=== PATIENT | female | born 1990 | race Caucasian/White ===

== ENCOUNTER 2016-11-16 08:47 | Day surgery (SDC) | payer OTHER ==
[~2016-11-16 08:47] MED LIST: RINGER'S SOLUTION,LACTATED 1,000 ML IV PRN
[2016-11-16] MEDS ORDERED: RINGER'S SOLUTION,LACTATED 1,000 ML IV PRN (10:57)
[2016-11-16 11:53] VITALS: BP 110/70
--- NOTE | 2016-11-16 12:59 | OR ---
Operative Report - Dictated Report Narrative: OPERATIVE REPORT DATE OF OPERATION: 11/16/2016 PREOPERATIVE DIAGNOSIS: Rectal bleeding. Family history of colon cancer and polyps. Family history of Crohn's disease POSTOPERATIVE DIAGNOSIS: Normal colonoscopy OPERATION: Colonoscopy SURGEON: Jay Govea MD ANESTHESIA: ANETTE Ford CRNA INDICATIONS FOR PROCEDURE: The patient is a 26-year-old female referred by Dr. Light. She had a single episode of bright red painless rectal bleeding. Her grandmother had colon cancer in her 60s. Her father had colon polyps. Her brother has Crohn's disease. FINDINGS: Capacious redundant colon otherwise normal exam to the cecum NARRATIVE OF PROCEDURE: The patient was identified in the holding area, and prior to the administration of anesthetic, a multidisciplinary timeout was observed. With the patient in the left lateral position and after the administration of intravenous sedation, the perineum was inspected. There was no evidence of pilonidal disease or skin breakdown. The external appearance of the anus was normal. Sphincter tone was good. The flexible fiberoptic colonoscope was inserted into the rectum which was insufflated with air. The rectal mucosa and submucosal vascular pattern appeared normal, the prep was seen to be complete. The scope was advanced through the sigmoid colon, up the descending colon, and around the splenic flexure where the triangular haustral architecture of the transverse colon was seen. The scope was advanced across the transverse colon, around the hepatic flexure to the cecum, where the confluence of tenia and the ileocecal valve were identified. The mucosa at this level appeared normal. The scope was then slowly withdrawn in a circular fashion so that all aspects of colonic mucosa were inspected. The colon was redundant in course and somewhat capacious and character. The haustral architecture appeared well preserved throughout with no evidence of external compression. The mucosa and submucosal vascular pattern appeared normal, specifically there was no gross evidence to suggest colitis or inflammatory bowel disease and no AV malformations were seen. No diverticulosis was demonstrated. No polyps were encountered. The scope was gradually withdrawn to the level of the rectum. As much insufflated air as possible was removed. The scope was withdrawn from the patient and the procedure terminated. The patient tolerated the anesthetic and procedure well without complication and was transferred back to the ambulatory surgery area awake and in stable condition. The patient remained stable throughout a period of postoperative observation. She denied abdominal discomfort, was able to tolerate by mouth intake, and was up without assistance. I shared the operative findings with the patient and she was given copies of the photographs which appear in the medical record. She was discharged home with instructions not to engage in hazardous activity today , but may resume normal activity tomorrow, and advance diet as tolerated. She is to continue those medications as listed in the history and physical exam. Reviewed and electronically signed
== END 2016-11-16 08:48 | disposition home or self-care (01) ==
LOC: AMB 08:47
PROVIDERS: ATTEND Surgery
PROC: 0DJD8ZZ Inspection of Lower Intestinal Tract, Via Natural or Artificial Opening Endoscopic (ICD-10-PCS; principal; 2016-11-16 09:40)
DX: Z12.11 Encounter for screening for malignant neoplasm of colon (principal); K62.5 Hemorrhage of anus and rectum; E03.9 Hypothyroidism, unspecified; D64.9 Anemia, unspecified; F41.9 Anxiety disorder, unspecified; Z80.0 Family history of malignant neoplasm of digestive organs; Z83.71 Family history of colonic polyps; Z87.891 Personal history of nicotine dependence; Z68.29 Body mass index [BMI] 29.0-29.9, adult

== ENCOUNTER 2017-08-08 00:02 | Inpatient (IN) ==
[2017-08-08] MEDS ORDERED: MISOPROSTOL 100 MCG TABLET VG PRN (00:08)
[2017-08-08] MEDS ORDERED: BUTORPHANOL TARTRATE 2 MG/ML VIAL IV PRN (00:08)
[2017-08-08] MEDS ORDERED: ONDANSETRON HCL/PF 2 MG/ML VIAL IV PRN ×2 (00:08→10:19)
[2017-08-08] MEDS ORDERED: RINGER'S SOLUTION,LACTATED 1,000 ML IV PRN (00:08)
[2017-08-08] MEDS ORDERED: OXYTOCIN/DEXTROSE 5%-WATER 30 UNITS/500 ML BAG IV ONE ×2 (00:08→20:47)
[2017-08-08] MEDS ORDERED: RINGER'S SOLUTION,LACTATED 1,000 ML IV ONE (00:08)
[2017-08-08] MEDS ORDERED: DEXTROSE 5%-LACTATED RINGERS 1,000 ML IV PRN (00:08)
[2017-08-08] MEDS ORDERED: NALOXONE HCL 1 MG/1 ML SYRG IV PRN (10:19)
[2017-08-08] MEDS ORDERED: BUPIVACAINE HCL/0.9 % NACL/PF 250 ML EP PRN (10:19)
[2017-08-08] MEDS ORDERED: BUPIVACAINE HCL/PF 30 ML VIAL EP SCH (10:30)
--- NOTE | 2017-08-08 10:39 | PN ---
Progess Note - Interim Date: 08/08/17 Time: 08:30 Narrative: 08/08/17 10:38 Pt starting to get more uncomfortable. SVE: /-2, cehpalic FHTs: + accels, mod brian., early decels [place]: q3-4 min A/P: Encourage ambulation/shower/position changes GBS neg Epidural prn
--- NOTE | 2017-08-08 11:39 | OR ---
Anesthesia Procedure Note - Anesthesia Procedure Note Date of Service: 08/08/17 Narrative: Vital Signs - Last Taken Temp 36.3 C L 08/08/17 11:10 Pulse 96 08/08/17 11:10 Resp 16 08/08/17 11:10 BP 129/82 08/08/17 11:10 Pulse Ox 98 08/08/17 11:10 08/08/17 11:39 ANESTHESIA PROCEDURE NOTE Date of Procedure: 08/08/2017. Time of procedure: 1120. Performed by: Tommy Granados CRNA Well Tender: None. Preprocedure diagnosis: Active labor. Post procedure diagnosis: Same. Procedure: Insertion of labor epidural. Indications: The patient is a 27 -year-old female in active labor requesting labor epidural for pain management. Findings: See below. Details of the procedure: The patient was placed in a sitting position. DuraPrep as well as Betadine swabs X3 was applied to the patient's back. Patient was then draped in a sterile fashion. Lidocaine 1% was infiltrated to the skin and subcutaneous tissues at the level of the L3-4 interspace. The epidural space was identified using a 18-gauge Tuohy needle with loss-of- resistance technique. Epidural catheter was inserted to a depth of 10 centimeters at skin. Negative test dose was elicited using 3 mL of 1.5% preservative-free lidocaine plus epinephrine 1 200,000. The epidural catheter was then taped and secured in place. A loading dose of 8 mL of 0.25% preservative-free bupivacaine was administered to the epidural catheter after negative aspiration for blood and CSF. EBL: Minimal. Fluids: N/A. Specimen: N/A. Post procedure condition: The patient tolerated the procedure well. No complications were noted. Thank you for this consultation. Tommy Granados CRNA
--- NOTE | 2017-08-08 12:36 | PN ---
Progess Note - Interim Date: 08/08/17 Time: 12:33 Narrative: 08/08/17 12:33 Subjective- comfortable after epidural Objective- SVE- 5/95/-2, AROM-clear FHTs- 130's, mod brian, no decels, +accels [place]- q2 min Assessment and plan- Labor- s/p cytotec x1, AROM GBS status- negative Continue current plan of care.
--- NOTE | 2017-08-08 16:18 | PN ---
Progess Note - Interim Date: 08/08/17 Time: 16:17 Narrative: 08/08/17 16:17 Subjective- complaining of a lot of pressure Objective- SVE- 7//-1 with contraction, 6cm without FHTs- 120's, mod brian, no decels, +accels [place]- q2 min Assessment and plan- Labor- s/p cytotec x1, AROM, on pitocin GBS status- negative Continue current plan of care.
[2017-08-08] MEDS ORDERED: BISACODYL 10 MG SUPP.RECT RC PRN (20:47)
[2017-08-08] MEDS ORDERED: BENZOCAINE/MENTHOL 81 SPRAY CAN TP PRN (20:47)
[2017-08-08] MEDS ORDERED: SENNOSIDES 8.6 MG TABLET PO PRN (20:47)
[2017-08-08] MEDS ORDERED: oxyCODONE HCL/ACETAMINOPHEN 1 TAB TABLET PO PRN (20:47)
[2017-08-08] MEDS ORDERED: HYDROCORTISONE 30 APPL TUBE TP PRN (20:47)
[2017-08-08] MEDS ORDERED: GLYCERIN/WITCH HAZEL LEAF 40 APPL BOX TP PRN (20:47)
--- NOTE | 2017-08-08 20:51 | OR ---
Operative Report - Dictated Report Narrative: Spontaneous Vaginal Delivery Viable female with APGARS of 8 at 1 min and 9 at 5 minutes. She delivered at 2026. Presentation was JEFFERY. A tight nuchal cord was noted and was clamped and cut at the perineum. The left anterior shoulder delivered without difficulty followed by the posterior shoulder and the remainder the baby. Spontaneous cry was noted and the baby was dried and stimulated and placed on the maternal abdomen. Weight: 8 pounds 2.2 ounces Placenta was delivered spontaneously and intact. First-degree midline vaginal laceration repaired with 2-0 Vicryl. Estimated blood loss: 100 ml Mother and baby tolerated delivery well. History for Definition: * The number of deliveries resulting in a live the patient experienced prior to current hospitalization * The previous delivery of live twins or any live multiple gestation is considered one live event. *If primagravida or nulliparous is documented select zero for the number of previous live births. Live Events: 0
[2017-08-08] MEDS: DOCUSATE SODIUM 100 MG CAPSULE PO SCH (23:07)
[2017-08-08] MEDS: IBUPROFEN 800 MG TABLET PO PRN (23:07)
[2017-08-09] MEDS: oxyCODONE HCL/ACETAMINOPHEN 1 TAB TABLET PO PRN ×2 (05:12→13:35)
[2017-08-09] MEDS: DOCUSATE SODIUM 100 MG CAPSULE PO SCH ×2 (08:37→22:02)
[2017-08-09] MEDS: IBUPROFEN 800 MG TABLET PO PRN ×2 (10:50→22:34)
--- NOTE | 2017-08-09 11:33 | PN ---
Progess Note - Interim Date: 08/09/17 Time: 08:30 Narrative: 08/09/17 11:32 progress note Subjective: The patient is doing well. She is ambulating, voiding, tolerating by mouth. She has minimal pain and moderate lochia. Objective: General: No acute distress Abdomen: Soft, nontender, fundus is firm just below the umbilicus Extremities: minimal edema, nontender to palpation Assessment and plan: day 1 Feeding: Breast Pain: Controlled with by mouth medication Routine care
[2017-08-10 08:10] VITALS: BP 130/75
[2017-08-10] MEDS: DOCUSATE SODIUM 100 MG CAPSULE PO SCH (10:16)
--- NOTE | 2017-08-10 11:48 | PN ---
Progess Note - Interim Date: 08/10/17 Time: 11:47 Narrative: 08/10/17 11:47 progress note Subjective: The patient is doing well. She is ambulating, voiding, tolerating by mouth. She has minimal pain and moderate lochia. Objective: General: No acute distress Abdomen: Soft, nontender, fundus is firm just below the umbilicus Extremities: minimal edema, nontender to palpation Assessment and plan: day 2 Feeding: Breast Pain: Controlled with by mouth medication control: OCPs Routine care
== END 2017-08-10 13:45 | disposition home or self-care (01) | DRG 775 ==
LOC: OB 00:02
PROVIDERS: ADMIT Obstetrics & Gynecology Gynecologic Oncology; ATTEND Obstetrics & Gynecology Gynecologic Oncology
DX: Z3A.40 40 weeks gestation of pregnancy; Z37.0 Single live birth; O70.0 First degree perineal laceration during delivery; O69.1XX0 Labor and delivery complicated by cord around neck, with compression, not applicable or unspecified; E03.9 Hypothyroidism, unspecified; O48.0 Post-term pregnancy; O99.284 Endocrine, nutritional and metabolic diseases complicating childbirth
CPT/HCPCS: 59025